=== PATIENT | female | born 1995 | race African-American/Black ===

== ENCOUNTER 2017-04-11 16:40 | Emergency (ER) | payer OTHER ==
[~2017-04-11 16:40] MED LIST: Z.0.NO CURRENT MEDS
[2017-04-11 16:42] VITALS: BP 130/73; PULSE 77; RESP 16; TEMP 98.5; O2SAT 99
[2017-04-11] MEDS ORDERED: BUTATAB6 PO (16:49)
[2017-04-11] MEDS ORDERED: PARO20TA3 PO (16:49)
--- NOTE | 2017-04-11 17:00 | PD ---
HPI Chief Complaint: Numbness/Tingling Time Seen by Provider: 16:59 Travel History International Travel<30 days: No Contact w/Intl Traveler<30days: No Traveled to known affect area: No History of Present Illness HPI 21-year-old Afro[place] female presents to the emergency Department with multiple complaints. Patient has intermittent mild nausea, decreased appetite, and "tingling" to both arms and legs for the past 4 days. Patient states she is sleeping well, has not lost considerable weight recently, denies depression or suicidal or homicidal ideation. Patient does admit to current distress with a boyfriend and work issues. Patient recently saw her primary care physician, and was prescribed 20 mg of Paxil daily 2 days ago. Patient currently denies as she has a progesterone implant. She denies other constitutional symptoms such as fever, chills, or vaginal discharge or dysuria. She has no known drug allergies. PFSH Past Medical History Diminished Hearing: No Social History Alcohol Use: No Tobacco Use: No Substance Use: No Allergies-Medications (Allergen,Severity, Reaction): Coded Allergies: No Known Allergies (Verified Adverse Reaction, Unknown, 04/11/17) Reported Meds & Prescriptions Reported Meds & Active Scripts Active Reported Vpvejsifij-Noeekazeljzjh-Fbwhsxio 50-325-40 Mg Tab 1-2 Tab PO Q4-6H PRN Do not exceed 6 tablets/day. Paroxetine (Paroxetine HCl) 20 Mg Tab 20 Mg PO DAILY Review of Systems Except as stated in HPI: all other systems reviewed are Neg General / Constitutional: No: Fever Eyes: No: Visual changes HENT: No: Headaches Cardiovascular: No: Chest Pain or Discomfort Respiratory: No: Shortness of Breath Gastrointestinal: No: Abdominal Pain Genitourinary: No: Dysuria Musculoskeletal: No: Pain Skin: No Rash Neurologic: No: Weakness Psychiatric: No: Depression Endocrine: No: Polydipsia Hematologic/Lymphatic: No: Easy Bruising Physical Exam Narrative GENERAL: Patient appears nonacute distress. SKIN: Warm and dry. Normal color. Normal turgor. HEAD: Atraumatic. Normocephalic. EYES: Pupils equal and round. No scleral icterus. No injection or drainage. ENT: No nasal bleeding or discharge. Mucous membranes pink and moist. Pharynx is clear. Airway is patent NECK: Trachea midline. Supple nontender. No palpable thyroid. CARDIOVASCULAR: Regular rate and rhythm. RESPIRATORY: No accessory muscle use. Clear to auscultation. Breath sounds equal bilaterally. GASTROINTESTINAL: Abdomen soft, non-tender, nondistended. Hepatic and splenic margins not palpable. MUSCULOSKELETAL: Extremities without clubbing, cyanosis, or edema. No obvious deformities. NEUROLOGICAL: Awake and alert. No obvious cranial nerve deficits. Motor grossly within normal limits. Five out of 5 muscle strength in the arms and legs. Normal speech. PSYCHIATRIC: Appropriate mood and affect; insight and judgment normal. Data Data Last Documented VS Vital Signs Date Time Temp Pulse Resp B/P (MAP) Pulse Ox O2 Delivery O2 Flow Rate FiO2 04/11/17 16:42 98.5 77 16 130/73 (92) 99 MDM Medical Decision Making Medical Screen Exam Complete: Yes Emergency Medical Condition: Yes Differential Diagnosis Anxiety. Stress reaction. Possible medication reaction. Narrative Course A medical screening exam was performed: At the time of evaluation the presenting medical condition was determined not to be of an emergent nature. The patient was given the option of receiving additional care, but declined. Patient was given options for additional community resources from which to obtain care. The Patient Has Been advised to seek medical attention for their presenting complaint. The patient has been advised to return to the ER at any time if an emergent condition develops. Condition: Stable Yohan Licona Apr 11, 2017 17:00
== END 2017-04-11 17:26 | disposition left against medical advice (07) ==
LOC: NEPK 16:40
DX: R11.0 Nausea (principal); R20.0 Anesthesia of skin; R63.0 Anorexia
CPT/HCPCS: 99281